=== PATIENT | male | born 1990 | race Hispanic/Latino ===

== ENCOUNTER 2017-08-08 17:27 | Emergency (ER) | payer SELFPAY ==
[2017-08-08] MEDS ORDERED: IBUPROFEN 600 MG TABLET ONE (17:58)
== END 2017-08-08 18:09 | disposition home or self-care (01) ==
LOC: EDH 17:27
DX: S63.592A Other specified sprain of left wrist, initial encounter (principal); X58.XXXA Exposure to other specified factors, initial encounter; Y93.89 Activity, other specified; Y92.89 Other specified places as the place of occurrence of the external cause; Y99.8 Other external cause status
CPT/HCPCS: 73110